=== PATIENT | female | born 1990 | race Caucasian/White ===

== ENCOUNTER 2019-08-09 10:51 | Emergency (ER) | payer SELFPAY ==
[~2019-08-09] VITALS: Ht 165.1 cm; Wt 104.5 kg
[2019-08-09] MEDS ORDERED: KETOROLAC TROMETHAMINE 30 MG/ML VIAL IM ONE (11:45)
[2019-08-09 12:37] VITALS: BP 131/81
== END 2019-08-09 12:41 | disposition home or self-care (01) ==
LOC: EMS 10:59
DX: S29.012A Strain of muscle and tendon of back wall of thorax, initial encounter (principal); S16.1XXA Strain of muscle, fascia and tendon at neck level, initial encounter; Z88.0 Allergy status to penicillin; V89.2XXA Person injured in unspecified motor-vehicle accident, traffic, initial encounter; Y93.89 Activity, other specified; Y92.488 Other paved roadways as the place of occurrence of the external cause; Y99.8 Other external cause status
CPT/HCPCS: 96372; 99283; J1885

== ENCOUNTER 2020-08-11 06:01 | Emergency (ER) | payer BC, OTHER ==
[~2020-08-11] VITALS: Ht 162.6 cm; Wt 104.3 kg
[2020-08-11 06:08] VITALS: BP 127/80
[2020-08-11] MEDS ORDERED: SERT-158 PO (06:17)
[2020-08-11 06:38] LABS: COVID AG,FIA SOURCE NASOPHARYNGEAL
[2020-08-11] MEDS ORDERED: ACETAMINOPHEN 500 MG TABLET PO ONE (07:30)
[2020-08-11] MEDS ORDERED: HYDROGEN PEROXIDE 118 ML SOLUTION TP ONE (08:00)
[2020-08-11 08:56] LABS: RAPID GROUP A STREP NEGATIVE (NEGATIVE)
== END 2020-08-11 09:10 | disposition home or self-care (01) ==
LOC: EMS 06:02
DX: J02.9 Acute pharyngitis, unspecified (principal); H61.21 Impacted cerumen, right ear; Z20.822 Contact with and (suspected) exposure to COVID-19; Z88.5 Allergy status to narcotic agent; Z88.0 Allergy status to penicillin
CPT/HCPCS: 69209; 86308; 87430; 99283

== ENCOUNTER 2020-10-05 05:11 | Emergency (ER) | payer OTHER ==
[~2020-10-05] VITALS: Ht 162.6 cm; Wt 104.5 kg
[~2020-10-05 05:11] MED LIST: SERT-158 PO
[2020-10-05 05:32] VITALS: BP 130/82
== END 2020-10-05 06:10 | disposition home or self-care (01) ==
LOC: EMS 05:12
DX: Z57.9 Occupational exposure to unspecified risk factor (principal); Z88.0 Allergy status to penicillin; Z88.5 Allergy status to narcotic agent
CPT/HCPCS: 80074; 84460; 99283